=== PATIENT | male | born 2000 | race Caucasian/White ===

== ENCOUNTER 2022-04-10 23:40 | Emergency (ER) | payer OTHER ==
[2022-04-11 00:01] VITALS: BP 134/83
[2022-04-11] MEDS ORDERED: IBUPROFEN 600 MG TABLET PO STA (00:34)
--- NOTE | 2022-04-11 00:37 | ED Physician Documentation ---
History of Present Illness - Stated complaint Stated Complaint: CHEST PAINS - Chief complaint Chief Complaint: General - History obtained from History obtained from: Patient - Additonal information Additional information: 21-year-old man presented with left upper quadrant and left lower rib pain after walking into a desk around 3 PM yesterday. Also has been lifting weights earlier. Pain is reproducible with stretching, twisting, and leaning over. No prior injury to the area. Denies nausea, vomiting, diarrhea, other symptoms. Review of Systems Cardiac: denies: Chest pain / pressure GI: reports: Abdominal Pain. denies: Abdominal Swelling, Nausea, Vomiting, Diarrhea PD PAST MEDICAL HISTORY - Present Medications Home Medications: Ambulatory Orders Medication Instructions Recorded Confirmed Ibuprofen [Motrin] 600 mg PO Q6H PRN #15 tab 04/11/22 - Allergies Allergies/Adverse Reactions: Allergies Allergy/AdvReac Type Severity Reaction Status Date / Time No Known Drug Allergies Allergy Verified 04/10/22 23:55 PD ED PE NORMAL - Vitals Vital signs reviewed: Yes - General General: Alert and oriented X 3, No acute distress, Well developed/nourished - HEENT HEENT: Atraumatic, PERRL, EOMI - Cardiac Cardiac: RRR, No murmur - Respiratory Respiratory: No respiratory distress, Clear bilaterally - Abdomen Abdomen: Non tender, Non distended, Other (discomfort to palpation LUQ) Results - Vitals Vitals: Vital Signs - 24 hr 04/10/22 23:55 Temperature 36.7 C Heart Rate 82 Respiratory 16 Rate Blood Pressure 134/83 H O2 Saturation 97 Oxygen O2 Source Room air PD Medical Decision Making - ED course ED course: 21-year-old man presents with left-sided pain that appears to be musculoskeletal in origin. Low suspicion of splenic rupture given low impact mechanism of injury and benign exam. Ibuprofen provided in the emergency department and prescription sent to pharmacy. Plan to follow-up with primary care provider. Return precautions given. Departure - Departure Disposition: Home, Self Care Clinical Impression: Muscle pain Condition: Good Instructions: ED Strain Abdominal Muscle Prescriptions: Ibuprofen [Motrin] 600 mg PO Q6H PRN #15 tab PRN Reason: Pain Comments: You were seen in the emergency department for left-sided pain. Your vital signs and exam uncovered no emergent findings.A prescription for extra strength ibuprofen was sent to [facility] pharmacy electronically on the [employer] base. Please follow-up with your primary care provider and return to the emergency department if you have new or worsening symptoms or other concerns.
== END 2022-04-11 00:45 | disposition home or self-care (01) ==
LOC: ED 23:40
DX: M79.10 Myalgia, unspecified site (principal)
CPT/HCPCS: 99282; 99283; A9270

== ENCOUNTER 2022-09-13 17:55 | Emergency (ER) | payer OTHER ==
--- NOTE | 2022-09-13 18:29 | ED Physician Documentation ---
History of Present Illness - Stated complaint Stated Complaint: FAINT/CHEST PX - Chief complaint Chief Complaint: Cardiac - History obtained from History obtained from: Patient - Additonal information Additional information: 22-year-old gentleman who is previously healthy. His father had HOCM but of unrelated causes. On his birthday in August he had a physical and [place]ogram later this summer. Today he was doing a personal fitness test and running. He passed out while running. He did not know he was in a pass out. There is no associated chest pain or trouble breathing. He awoke on the ground surrounded by people. He has some scrapes but otherwise feels fine. PD PAST MEDICAL HISTORY - Past Surgical History Past Surgical History: No - Present Medications Home Medications: Ambulatory Orders Medication Instructions Recorded Confirmed Ibuprofen [Motrin] 600 mg PO Q6H PRN #15 tab 04/11/22 - Allergies Allergies/Adverse Reactions: Allergies Allergy/AdvReac Type Severity Reaction Status Date / Time No Known Drug Allergies Allergy Verified 04/10/22 23:55 - Social History Does the pt smoke?: No Smoking Status: Never smoker Does the pt drink ETOH?: No Does the pt have substance abuse?: No - Immunizations Immunizations are current?: Yes - POLST Patient has POLST: No PD ED PE NORMAL - Vitals Vital signs reviewed: Yes - General General: Alert and oriented X 3, No acute distress - Cardiac Cardiac: RRR, No murmur - Respiratory Respiratory: No respiratory distress, Clear bilaterally - Abdomen Abdomen: Non tender - Extremities Extremities: No edema, No calf tenderness / cord - Neuro Neuro: Alert and oriented X 3, Normal speech Results - Vitals Vitals: Vital Signs - 24 hr 09/13/22 18:04 Temperature 36.9 C Heart Rate 86 Respiratory 18 Rate Blood Pressure 120/69 O2 Saturation 98 Oxygen O2 Source Room air - EKG (time done) 1813 EKG releavant findings:: EKG personally interpreted by author of this note. Relevant findings are: Rate: Rate (enter#) (82) Rhythm: NSR [place]: Normal Intervals: Normal MA Ischemia: ST elevation c/w repol. No: ST elevation c/w ischemia, ST depression, T wave inversion Computer interpretation: No: Agree with computer - Labs Labs: Laboratory Tests 09/13/22 09/13/22 09/13/22 19:01 19:01 19:01 WBC 6.7 RBC 5.04 Hgb 14.9 Hct 43.6 MCV 86.5 MCH 29.6 MCHC 34.2 RDW 11.8 L Plt Count 194 MPV 10.5 Neut # (Auto) 4.4 Lymph # (Auto) 1.7 [place] # (Auto) 0.5 Eos # (Auto) 0.1 Baso # (Auto) 0.0 Absolute Nucleated RBC 0.00 Nucleated RBC % 0.0 Sodium 138 Potassium 4.0 Chloride 106 Carbon Dioxide 27 Anion Gap 5.0 L BUN 16 Creatinine 1.0 Estimated GFR (MDRD) 93 Glucose 116 H Calcium 9.2 Total Bilirubin 0.7 AST 24 ALT 25 Alkaline Phosphatase 66 Troponin I High Sens 5.5 Total Protein 7.0 Albumin 4.0 Globulin 3.0 Albumin/Globulin Ratio 1.3 Lipase 31 - Rads (name of study) Single view chest x-ray is unremarkable Relevant Findings:: Final report received, EMP independent interpretation of test PD Medical Decision Making - ED course ED course: 22-year-old gentleman with exercise-induced syncope. Normal EKG and work-up here. Discussed with him that he should cease exercise until cleared by his PCM and echocardiography has been completed. Departure - Departure Disposition: 01 Home, Self Care Clinical Impression: Syncope Condition: Good Record reviewed to determine appropriate education?: Yes Instructions: ED Fainting Unkn Cause Comments: There is no evidence of heart damage and your chest x-ray looks okay. That said given the fact that your passed out while exercising and your family history of HOCM you should not exercise until cleared by your PCM and said evaluation should include an echocardiogram. Follow-up with your PCM to discuss to see if the echocardiogram can be accelerated. Return for new or worsening symptoms. Forms: Activity restrictions
--- NOTE | 2022-09-13 18:56 | XRAY Report ---
PROCEDURE: Chest 1 View X-Ray INDICATIONS: Chest pain TECHNIQUE: One view of the chest was acquired. COMPARISON: None. FINDINGS: Surgical changes and devices: None. Lungs and pleura: No pleural effusions or pneumothorax. Lungs are clear. Mediastinum: Mediastinal contours appear normal. Heart size is normal. Bones and chest wall: No suspicious bony lesions. Overlying soft tissues appear unremarkable. IMPRESSION: No acute radiographic abnormality. Reviewed by: Curt Rubin MD on 09/13/2022 6:54 PM PDT Approved by: Curt Rubin MD on 09/13/2022 6:54 PM PDT Station ID: [id number]
[2022-09-13 19:21] LABS: BASOPHILS % (AUTO) 0.4 %; EOSINOPHILS # (AUTO) 0.1 10^3/uL (0.0-0.7); EOSINOPHILS % (AUTO) 1.2 %; HCT - HEMATOCRIT 43.6 % (42.0-52.0); HGB - HEMOGLOBIN 14.9 g/dL (14.0-18.0); LYMPHOCYTES # (AUTO) 1.7 10^3/uL (1.5-3.5); LYMPHOCYTES % (AUTO) 24.8 %; MEAN CORPUSCULAR HEMOGLOBIN 29.6 pg (27.0-31.0); MEAN CORPUSCULAR HGB CONC 34.2 g/dL (32.0-36.0); MEAN CORPUSCULAR VOLUME 86.5 fL (80.0-94.0); MEAN PLATELET VOLUME 10.5 fL (7.4-11.4); MONOCYTES # (AUTO) 0.5 10^3/uL (0.0-1.0); MONOCYTES % (AUTO) 7.8 %; NEUTROPHILS # (AUTO) 4.4 10^3/uL (1.5-6.6); NEUTROPHILS % (AUTO) 65.5 %; PLT - PLATELET COUNT 194 10^3/uL (130-450); RED BLOOD COUNT 5.04 10^6/uL (4.70-6.10); RED CELL DISTRIBUTION WIDTH 11.8 % (12.0-15.0); WHITE BLOOD COUNT 6.7 x10^3/uL (4.8-10.8)
[2022-09-13 19:37] LABS: ALBUMIN/GLOBULIN RATIO 1.3 (1.0-2.2); BILIRUBIN,TOTAL 0.7 mg/dL (0.2-1.0); CALCIUM 9.2 mg/dL (8.5-10.3)
[2022-09-13 19:56] VITALS: BP 154/63
== END 2022-09-13 19:55 | disposition home or self-care (01) ==
LOC: ED 17:55
DX: R55 Syncope and collapse (principal)
CPT/HCPCS: 36415; 80053; 83690; 84484; 85025; 93005; 99283; 99284

== ENCOUNTER 2022-11-20 04:59 | Emergency (ER) | payer OTHER ==
[2022-11-20 05:14] VITALS: BP 132/76; O2SAT 97
--- NOTE | 2022-11-20 05:50 | ED Physician Documentation ---
PD HPI UPPER EXT INJURY - Stated complaint Stated Complaint: R FINGER INJ - Chief complaint Chief Complaint: Laceration - History obtained from History obtained from: Patient - Additonal information Additional information: Patient is a 22-year-old male presenting for evaluation of laceration to his right middle finger that occurred just prior to arrival. 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 His tetanus is up-to-date. No blood thinner. Bleeding is controlled with pressure. Review of Systems Constitutional: denies: Fever Skin: reports: Laceration (s) PD PAST MEDICAL HISTORY - Past Surgical History Past Surgical History: No - Present Medications Home Medications: Ambulatory Orders Medication Instructions Recorded Confirmed Ibuprofen [Motrin] 600 mg PO Q6H PRN #15 tab 04/11/22 - Allergies Allergies/Adverse Reactions: Allergies Allergy/AdvReac Type Severity Reaction Status Date / Time No Known Drug Allergies Allergy Verified 04/10/22 23:55 - Social History Does the pt smoke?: No Smoking Status: Never smoker Does the pt drink ETOH?: No Does the pt have substance abuse?: No - Immunizations Immunizations are current?: Yes - POLST Patient has POLST: No PD ED PE NORMAL - General General: Alert and oriented X 3, No acute distress, Well developed/nourished - HEENT HEENT: Atraumatic - Respiratory Respiratory: No respiratory distress - Extremities Extremities: Other (1.5 cm laceration to mid right middle finger on the volar surface, normal range of motion at all joints, motor and sensation grossly intact, brisk cap refill) Results - Vitals Vitals: Vital Signs - 24 hr 11/20/22 05:04 Temperature 36.2 C L Heart Rate 77 Respiratory 16 Rate Blood Pressure 132/76 H O2 Saturation 97 Oxygen O2 Source Room air Procedures - Laceration (location) Right middle finger Length in cm: 2 Wound type: Linear, Clean Neurovascular status: Sensory intact, Motor intact, Vascular intact Tendon involvement: Tendon intact Anesthesia: Lidocaine 1% Wound preparation: Hibiclens, Irrigated copiously NS, Wound explored, To the base Skin layer closure: Size #-0 - enter number (4), Sutures - enter # (4) Other: Patient tolerated well, No complications, Neurovascular intact, Tetanus UTD PD Medical Decision Making - ED course ED course: Patient with laceration to right middle finger. Neurovascularly intact with no signs of tendon injury. Wound was cleaned and closed with sutures. Patient's tetanus is up-to-date. Patient counseled on wound care instructions, to return for suture removal as well as concerning symptoms to return for. Departure - Departure Disposition: 01 Home, Self Care Clinical Impression: Laceration of right middle finger Condition: Stable Instructions: ED Laceration Ext Sutr Stap Tape Comments: You have a laceration to your right middle finger that was closed with 4 stitches. The stitches should be removed in 1 week on November 27. Please keep the wound clean and dry. I would recommend covering the wound when you are at work. Please take caution when using your hand as to limit movement so that you do not split the wound back open. Return to the ER if you develop any worsening symptoms such as swelling, abnormal drainage, redness. Forms: PCP List, Activity restrictions
== END 2022-11-20 06:00 | disposition home or self-care (01) ==
LOC: ED 04:59
DX: S61.212A Laceration without foreign body of right middle finger without damage to nail, initial encounter (principal); W26.0XXA Contact with knife, initial encounter
CPT/HCPCS: 12011; 99281

== ENCOUNTER 2023-03-08 22:10 | Emergency (ER) | payer OTHER ==
[2023-03-08] MEDS ORDERED: HYDROcod/ACET 5/325 Prepack 4 PO STA (22:29)
[2023-03-08] MEDS ORDERED: BENZONATATE 100 MG CAPSULE PO STA (22:29)
[2023-03-08] MEDS ORDERED: IBUPROFEN 800 MG TABLET PO STA (22:29)
--- NOTE | 2023-03-08 22:31 | ED Physician Documentation ---
History of Present Illness - Stated complaint Stated Complaint: COUGH,RUNNY NOSE,CHILLS - Chief complaint Chief Complaint: Resp - History obtained from History obtained from: Patient - Additonal information Additional information: 22-year-old gentleman with history of asthma has been sick for 3 days with cough, runny nose and body aches. Tonight the cough got worse and he developed a lot of pain in the ribs with coughing. He is also short of breath. No fevers. Cough is productive of green sputum. Significant other was ill prior to him becoming ill. He has not been tested for COVID. PD PAST MEDICAL HISTORY - Past Medical History Past Medical History: No - Past Surgical History Past Surgical History: No - Present Medications Home Medications: Ambulatory Orders Medication Instructions Recorded Confirmed Amoxicillin 1,000 mg PO TID #30 cap 03/08/23 Azithromycin [Zithromax] 1 tab PO DAILY #4 tab 03/08/23 Benzonatate [Tessalon] 200 mg PO TID PRN #20 cap 03/08/23 HYDROcod/ACETAM 5/325 [[place] 5/325] 1 - 2 tab PO Q6H PRN #7 tablet 03/08/23 Montelukast [Singulair] 10 mg PO QPM #30 tablet 03/08/23 - Allergies Allergies/Adverse Reactions: Allergies Allergy/AdvReac Type Severity Reaction Status Date / Time No Known Drug Allergies Allergy Verified 03/08/23 22:18 - Social History Does the pt smoke?: Yes Smoking Status: Current every day smoker Does the pt drink ETOH?: Yes ETOH Use: Beer Does the pt have substance abuse?: No - Immunizations Immunizations are current?: Yes - POLST Patient has POLST: No PD ED PE NORMAL - Vitals Vital signs reviewed: Yes - General General: Alert and oriented X 3, Other (Frequent coughing) - HEENT HEENT: Pharynx benign - Neck Neck: Supple, no meningeal sign, No bony TTP - Cardiac Cardiac: RRR, No murmur - Respiratory Respiratory: No respiratory distress, Clear bilaterally - Abdomen Abdomen: Non tender - Derm Derm: No rash - Neuro Neuro: Alert and oriented X 3, Normal speech Results - Vitals Vitals: Vital Signs - 24 hr 03/08/23 22:14 Temperature 36.8 C Heart Rate 87 Respiratory 18 Rate Blood Pressure 137/87 H O2 Saturation 96 Oxygen O2 Source Room air PD Medical Decision Making - ED course ED course: 22-year-old gentleman presents with a respiratory infection. Clear lungs and no obvious evidence of bacterial pneumonia but a lot of pain with coughing, will check x-ray. Of note he had exercised induced syncope earlier this year and was lost to follow-up for the echo and was advised he really should still do that. 22-year-old gentleman with URI now with more rib pain with coughing. Chest x- ray to my eye looks like there may be a left perihilar pneumonia. Read is pending on discharge but will treat with amoxicillin/azithromycin. Departure - Departure Disposition: Home, Self Care Clinical Impression: Upper respiratory tract infection Qualifiers: URI type: unspecified viral URI Qualified Code(s): J06.9 - Acute upper respiratory infection, unspecified Pneumonia Qualifiers: Pneumonia type: due to unspecified organism Laterality: left Lung location: upper lobe of lung Qualified Code(s): J18.9 - Pneumonia, unspecified organism Condition: Good Record reviewed to determine appropriate education?: Yes Instructions: ED Pneumonia Adult Prescriptions: Amoxicillin 1,000 mg PO TID #30 cap HYDROcod/ACETAM 5/325 [[place] 5/325] 1 - 2 tab PO Q6H PRN #7 tablet PRN Reason: Pain Montelukast [Singulair] 10 mg PO QPM #30 tablet Benzonatate [Tessalon] 200 mg PO TID PRN #20 cap PRN Reason: Cough Azithromycin [Zithromax] 1 tab PO DAILY #4 tab Comments: You really should get that echocardiogram that your primary care doctor ordered earlier this year. Make sure to follow-up for that, it is quite important. Looks like there is a subtle left-sided pneumonia on the x-ray for which I am prescribing antibiotics and medications for the cough. Also per your request I wrote a prescription for singular for the cat allergy. I [place] all [place] [facility] [place] Drink plenty of fluids, you can also take ibuprofen per package instructions for the aches and pains. Call your doctor to arrange a follow-up appointment, make the next available appointment. In the interim, return anytime if worse or if new symptoms develop. I am prescribing a short course of narcotic pain medication for you. These are potentially dangerous and addictive medications that should be used carefully. These medications may constipate you. Take an gbuq-nas-gksdezd stool softener (docusate) twice daily with plenty of water while taking these medications. If you go 24 hours without a bowel movement, take [id number] miralax, per package instructions. Do not drink or drive while taking these medications. If you received narcotic or sedating medications while in the emergency department, do not drive for 24 hours. Store this medication in a safe, secure place and out of reach of children. It is a violation of federal law to give or sell this medication to another person or to use in a manner other than prescribed. The ED will not refill narcotic prescriptions, including prescriptions lost or stolen. To dispose of unwanted medications: 1. [facility] provides a drop box for medication in pill form only (no liquids) 8:00 am to 4:30 p.m. Saturday-Saturday in the lobby of the [facility], [address] [place] [address]. Empty pills into ziplock bag before disposal. Call [phone] for information. 2.[employer] is a free service available to all [facility] residents. Go to [email or web address] Note that many narcotic pain relievers also contain Tylenol/acetaminophen. Please ensure that your total dose of acetaminophen from all sources does not exceed 3 g (3000 mg) per day. Forms: PCP List
[2023-03-08] MEDS ORDERED: AZITHROMYCIN 250 MG TABLET PO STA (22:55)
[2023-03-08] MEDS ORDERED: AMOXICILLIN 250 MG CAPSULE PO STA (22:55)
--- NOTE | 2023-03-08 23:10 | XRAY Report ---
PROCEDURE: Chest 1 View X-Ray INDICATIONS: cough TECHNIQUE: One view of the chest was acquired. COMPARISON: CXR 09/13/2022. FINDINGS: Surgical changes and devices: None. Lungs and pleura: No pleural effusions or pneumothorax. Lungs are clear. Mediastinum: Mediastinal contours appear normal. Heart size is normal. Bones and chest wall: No suspicious bony lesions. Overlying soft tissues appear unremarkable. IMPRESSION: No acute cardiopulmonary process. Reviewed by: Alvin Hamilton MD on 03/08/2023 11:08 PM [facility] Approved by: Alvin Hamilton MD on 03/08/2023 11:08 PM PST Station ID: [id number]
[2023-03-08 23:31] VITALS: BP 139/66
[2023-03-08 23:41] VITALS: O2SAT 98
== END 2023-03-08 23:40 | disposition home or self-care (01) ==
LOC: ED 22:10
DX: J06.9 Acute upper respiratory infection, unspecified (principal); J18.9 Pneumonia, unspecified organism; F17.200 Nicotine dependence, unspecified, uncomplicated; Z20.822 Contact with and (suspected) exposure to COVID-19
CPT/HCPCS: 71045; 87635; 99284; A9270

== ENCOUNTER 2023-03-13 21:41 | Emergency (ER) | payer OTHER ==
--- NOTE | 2023-03-13 23:28 | ED Physician Documentation ---
History of Present Illness - Stated complaint Stated Complaint: SOA/COUGH/CHEST PX - Chief complaint Chief Complaint: Resp - History obtained from History obtained from: Patient - Additonal information Additional information: 22Ym previously healthy p/w several days of viral URI symptoms and dry racking cough with chest pain with cough. patient completed a 5 day course of azithromycin and is on day 6 of amoxicillin. still with symptoms and unable to sleep at night due to cough. patient uses vape pen regularly per his report. denies fever but does endorse chills PD PAST MEDICAL HISTORY - Past Medical History Past Medical History: Yes Respiratory: Pneumonia Other Past Medical History: Recently DX w/ Pneumonia - Past Surgical History Past Surgical History: No - Present Medications Home Medications: Ambulatory Orders Medication Instructions Recorded Confirmed Amoxicillin 1,000 mg PO TID 10 Days #60 cap 03/08/23 03/13/23 Azithromycin [Zithromax] 250 mg PO DAILY #4 tablet 03/08/23 03/13/23 Benzonatate [Tessalon] 200 mg PO TID PRN #20 cap 03/08/23 03/13/23 Montelukast [Singulair] 10 mg PO QPM #30 tablet 03/08/23 03/13/23 Dextromethorphan HBr 15 mg PO QPM PRN #10 cap 03/13/23 - Allergies Allergies/Adverse Reactions: Allergies Allergy/AdvReac Type Severity Reaction Status Date / Time No Known Drug Allergies Allergy Verified 03/13/23 21:53 - Social History Does the pt smoke?: No Smoking Status: Never smoker Does the pt drink ETOH?: Yes ETOH Use: Beer Does the pt have substance abuse?: No - Immunizations Immunizations are current?: Yes - POLST Patient has POLST: No PD ED PE NORMAL - Vitals Vital signs reviewed: Yes - General General: Alert and oriented X 3, No acute distress, Well developed/nourished - HEENT HEENT: Atraumatic, PERRL, EOMI, Moist mucous membranes, Pharynx benign - Neck Neck: Supple, no meningeal sign - Cardiac Cardiac: RRR - Respiratory Respiratory: No respiratory distress, Clear bilaterally, Other (dry cough) Results - Vitals Vitals: Vital Signs - 24 hr 03/13/23 03/13/23 03/13/23 21:48 22:29 22:48 Temperature 36.7 C 37.0 C Heart Rate 68 81 75 Respiratory 17 18 18 Rate Blood Pressure 133/70 H 144/72 H 151/78 H O2 Saturation 96 97 96 Oxygen O2 Source Room air PD Medical Decision Making - ED course ED course: 22yM presents with viral URI symptoms X 1 week. cxr on prior visit showed no pneumonia and he has completed almost a full course of antibiotics. likely viral etiology in conjunction with his smoking. symptoms management discussed. cough suppresant prescribed. f/u with pcp. return precautions given. Departure - Departure Disposition: Home, Self Care Clinical Impression: Cough, Viral URI Condition: Stable Instructions: ED Viral Syndrome Prescriptions: Dextromethorphan HBr 15 mg PO QPM PRN #10 cap PRN Reason: Cough Comments: You were seen in the emergency department for Viral upper respiratory infection. Prescription was sent electronically to the [facility] pharmacy [place] [employer] [place]. Please follow-up with your primary care provider and return to the emergency department if you have any new or worsening symptoms or other concerns.
[2023-03-13] MEDS ORDERED: guaiFENesin/DEXTROMETHORPHAN 10 ML UDC PO STA (23:32)
[2023-03-13 23:48] VITALS: BP 118/78; O2SAT 98
== END 2023-03-13 23:40 | disposition home or self-care (01) ==
LOC: ED 21:41
DX: J06.9 Acute upper respiratory infection, unspecified (principal); F17.290 Nicotine dependence, other tobacco product, uncomplicated
CPT/HCPCS: 99282; 99283; A9270

== ENCOUNTER 2023-08-12 22:34 | Emergency (ER) | payer OTHER ==
[2023-08-12 22:54] VITALS: BP 142/71; O2SAT 99
--- NOTE | 2023-08-12 23:22 | ED Physician Documentation ---
History of Present Illness - Stated complaint Stated Complaint: SOA/CHILLS/BODY ACHES/VOMITING - Chief complaint Chief Complaint: General - Additonal information Additional information: Patient 22-year-old male presenting with cough, congestion, Body ache, nausea, vomiting. Symptoms ongoing since on Saturday. No known sick contacts. Had 1-2 episodes nonbloody nonmucoid vomiting that began earlier today. No associated abdominal pain. No past surgical history. Review of Systems Constitutional: reports: Myalgias. denies: Fever Eyes: denies: Loss of vision Ears: denies: Loss of hearing Nose: reports: Rhinorrhea / runny nose, Congestion Throat: denies: Dental pain / toothache, Oral lesions / sores, Sore throat Cardiac: denies: Chest pain / pressure Respiratory: reports: Cough GI: reports: Nausea, Vomiting PD PAST MEDICAL HISTORY - Past Medical History Past Medical History: No Respiratory: Pneumonia - Past Surgical History Past Surgical History: No - Present Medications Home Medications: Ambulatory Orders Medication Instructions Recorded Confirmed Amoxicillin 1,000 mg PO TID 10 Days #60 cap 03/08/23 03/13/23 Azithromycin [Zithromax] 250 mg PO DAILY #4 tablet 03/08/23 03/13/23 Benzonatate [Tessalon] 200 mg PO TID PRN #20 cap 03/08/23 03/13/23 Montelukast [Singulair] 10 mg PO QPM #30 tablet 03/08/23 03/13/23 Dextromethorphan HBr 15 mg PO QPM PRN #10 cap 03/13/23 Ibuprofen [Motrin] 800 mg PO Q8H PRN #30 tablet 08/12/23 Ondansetron Odt [Zofran] 4 mg TL Q6H PRN #10 tablet 08/12/23 Pseudoephedrine HCl [Sudafed 240 mg PO DAILY #10 tab 08/12/23 24-Hour] - Allergies Allergies/Adverse Reactions: Allergies Allergy/AdvReac Type Severity Reaction Status Date / Time No Known Drug Allergies Allergy Verified 08/12/23 22:48 - Social History Does the pt smoke?: No Smoking Status: Never smoker Does the pt drink ETOH?: Yes Does the pt have substance abuse?: No - Immunizations Immunizations are current?: Yes - POLST Patient has POLST: No PD ED PE NORMAL - General General: Alert and oriented X 3 - HEENT HEENT: Atraumatic - Neck Neck: Supple, no meningeal sign - Cardiac Cardiac: RRR - Respiratory Respiratory: No respiratory distress, Clear bilaterally - Abdomen Abdomen: Normal bowel sounds, Non tender - Male Male : Deferred - Rectal Rectal: Deferred - Back Back: No CVA TTP - Derm Derm: Normal color - Extremities Extremities: No deformity Results - Vitals Vitals: Vital Signs - 24 hr 08/12/23 22:48 Temperature 37.1 C Heart Rate 90 Respiratory 16 Rate Blood Pressure 142/71 H O2 Saturation 99 Oxygen O2 Source Room air PD Medical Decision Making - ED course Complexity details: considered differential ED course: Patient 22-year-old male presenting with cough, congestion, body ache. Symptoms ongoing x 1-2 days. Afebrile, he medically stable arrival to the emergency department. Clear aeration in all lung [place] with no rhonchi, rales. Cardiac exam is similarly benign. Benign abdominal exam with no indications acute abdomen. Patient does have notable upper airway congestion but no erythema or exudates in the posterior oropharynx. No indications deep space neck infection. No nuchal rigidity. No tender or appreciable cervical adenopathy. Discussed all findings with patient. Likely diagnosis is a viral illness. Discussed medications for symptomatic management. Patient given dose ondansetron ibuprofen in the emergency department. Will discharge with medication for symptomatic management. At patient's request a respiratory viral panel was obtained prior to his discharge. He was given instructions on how to follow-up with this. He was encouraged to follow-up with his primary care doctor or return for new or worsening symptoms. Departure - Departure Disposition: 01 Home, Self Care Clinical Impression: Viral illness Instructions: ED Viral Syndrome Prescriptions: Ibuprofen [Motrin] 800 mg PO Q8H PRN #30 tablet PRN Reason: PAIN &/OR FEVER Pseudoephedrine HCl [Sudafed 24-Hour] 240 mg PO DAILY #10 tab Ondansetron Odt [Zofran] 4 mg TL Q6H PRN #10 tablet PRN Reason: Nausea / Vomiting Comments: Thank you for allowing us to care for you today at [facility]. Today in the emergency department you were diagnosed with a viral syndrome. Attached is some information about that condition. Please use the [employer] shira to follow-up on the results of your respiratory viral panel. I have since medications no previous symptoms including medication for any ongoing nausea. Please take this as directed. Please follow-up with your primary care doctor concerning your ER visit.
[2023-08-12] MEDS: IBUPROFEN 800 MG TABLET PO STA (23:24)
[2023-08-12] MEDS: ONDANSETRON ODT 4 MG TABLET TL STA (23:24)
[2023-08-12] MEDS: ONDANSETRON ODT 4 MG Prepack 2 TL PRN (23:44)
[2023-08-13 00:40] LABS: B. PARAPERTUSSIS- RESP PCR PAN NOT DETECTED; B. PERTUSSIS- RESP PCR PANEL NOT DETECTED; C. PNEUMONIAE- RESP PCR PANEL NOT DETECTED; CORONAVIRUS 229E-RESP PCR NOT DETECTED; CORONAVIRUS HKU1-RESP PCR NOT DETECTED; CORONAVIRUS NL63-RESP PCR NOT DETECTED; CORONAVIRUS OC43-RESP PCR NOT DETECTED; HUMAN METAPNEUMOVIRUS NOT DETECTED; INFLUENZA A- RESP PCR PANEL NOT DETECTED; INFLUENZA B - RESP PCR PANEL NOT DETECTED; M. PNEUMONIAE- RESP PCR PANEL NOT DETECTED; PARAINFLUENZA VIRUS 1 NOT DETECTED; PARAINFLUENZA VIRUS 2 NOT DETECTED; PARAINFLUENZA VIRUS 3 NOT DETECTED; PARAINFLUENZA VIRUS 4 NOT DETECTED; RHINOVIRUS/ENTEROVIRUS NOT DETECTED; RSV- RESP PCR PANEL NOT DETECTED; SARS-CoV-2 -RESP PCR PANEL NOT DETECTED
== END 2023-08-12 23:48 | disposition home or self-care (01) ==
LOC: ED 22:34
DX: B34.9 Viral infection, unspecified (principal)
CPT/HCPCS: 87633; 99283; A9270; Q0162